=== PATIENT | female | born 1990 | race Caucasian/White ===

== ENCOUNTER 2019-07-03 13:30 | Outpatient (RCR) | payer OTHER, MEDICARE, MEDICAID, SELFPAY ==
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
--- NOTE | 2019-05-15 09:08 | PCPTNOTE ---
Patient called & cancelled scheduled appointment this date due to weather.
--- NOTE | 2019-05-22 12:51 | PCPTNOTE ---
Addendum entered by Giselle Viveros, PT 05/22/19 13:03: Note written in error. Pt arrived for scheduled appt. Original Note: Patient did not show up for scheduled appointment this date. She has an appt scheduled for 05/26.
--- NOTE | 2019-06-02 14:18 | PCPTNOTE ---
Patient called & cancelled scheduled appointment this date due to reason unknown.
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
--- NOTE | 2019-07-06 13:31 | PCPTNOTE ---
This treatment is being continued on visit number [id number]. Please see documentation on both accounts to view progress. Completed interventions, outcomes, and problems have been marked as Inactive to facilitate the copying of the Care plan routine for recurring accounts.
== END 2019-07-03 23:59 | disposition home or self-care (01) ==
LOC: ANHPT 13:30
DX: T79.2XXD Traumatic secondary and recurrent hemorrhage and seroma, subsequent encounter (principal); R53.81 Other malaise; V89.2XXD Person injured in unspecified motor-vehicle accident, traffic, subsequent encounter
CPT/HCPCS: 97110; 97112; 97116; 97140; 97162; 97530

== ENCOUNTER 2019-07-17 14:00 | Outpatient (RCR) | payer OTHER, MEDICARE, MEDICAID, SELFPAY ==
--- NOTE | 2019-07-06 13:32 | PCPTNOTE ---
The treatment documented on this account is a continuation of the treatment documented on visit number [id number]. Please see documentation on both accounts to view progress. The Plan of Care has been transitioned and updated within the new V#. I have addressed and agree with the discipline specific Problems, Interventions, and Goals for the current certification period. Completed interventions, outcomes, and problems have been marked as Inactive to facilitate the copying of the Care plan routine for recurring accounts.
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
== END 2019-07-18 09:43 | disposition home or self-care (01) ==
LOC: ANHPT 14:00
DX: T79.2XXD Traumatic secondary and recurrent hemorrhage and seroma, subsequent encounter (principal); R53.81 Other malaise; V89.2XXD Person injured in unspecified motor-vehicle accident, traffic, subsequent encounter
CPT/HCPCS: 97110; 97530

== ENCOUNTER 2020-08-13 16:38 | Outpatient (CLI) | payer MEDICARE, MEDICAID, SELFPAY ==
[2020-08-13 18:12] LABS: HIV 1/2 Ab P24 Ag Result Negative (Negative)
[2020-08-13 19:04] LABS: Hepatitis C Virus Antibody Negative (Negative)
[2020-08-14 11:30] LABS: Rapid Plasma Reagin Non-Reactive (NonReactive)
[2020-08-17 13:04] LABS: HSV 1 IgM Screen Negative (Negative); HSV 2 IgM Screen Negative (Negative)
== END 2020-08-13 16:39 | disposition home or self-care (01) ==
LOC: ANHLAB 16:40
PROVIDERS: Visit Provider Obstetrics & Gynecology
DX: Z20.2 Contact with and (suspected) exposure to infections with a predominantly sexual mode of transmission (principal); Z11.4 Encounter for screening for human immunodeficiency virus [HIV]
CPT/HCPCS: 36415; 86592; 86695; 86696; 86703; 86803; G0432

== ENCOUNTER 2021-09-18 14:18 | Outpatient (CLI) | payer MEDICARE, MEDICAID, SELFPAY ==
[2021-09-18 16:11] LABS: HIV 1/2 Ab P24 Ag Result Negative (Negative)
[2021-09-18 17:03] LABS: Hepatitis C Virus Antibody Negative (Negative)
[2021-09-19 07:20] LABS: Rapid Plasma Reagin Non-Reactive (NonReactive)
== END 2021-09-18 14:19 | disposition home or self-care (01) ==
PROVIDERS: Visit Provider Obstetrics & Gynecology
DX: Z20.2 Contact with and (suspected) exposure to infections with a predominantly sexual mode of transmission (principal); Z11.4 Encounter for screening for human immunodeficiency virus [HIV]
CPT/HCPCS: 36415; 86592; 86703; 86803; G0432

== ENCOUNTER 2021-10-28 14:51 | Outpatient (CLI) | payer MEDICARE, MEDICAID, SELFPAY ==
--- NOTE | ~2021-10-28 | US_ITS ---
EXAMINATION: US axilla LT, US axilla RT DATE: 10/28/2021 16:30 INDICATION: Localized swelling, mass and lump at the bilateral axillae TECHNIQUE: Multiple grayscale and Doppler ultrasound images of the left and right axilla were obtaine dEmily COMPARISON: None FINDINGS: There are couple superficial hypoechoic lesions at the left axilla which position within 1 mm of the skin surface. The larger measures 7 x 6 x 3 mm and the smaller measures 3 x 2 x 3 mm. There are 2 sim ilar-appearing hypoechoic lesions at the right axilla also 1 mm from the skin surface, the larger rigoberto suring 6 x 5 x 2 mm and the smaller 6 x 4 x 2 mm . 3 of these lesions demonstrate subtle hypoechoic t ract extending to the skin surface which be most consistent with sebaceous cysts. IMPRESSION: 1. Four subcentimeter very superficial subcutaneous lesions at the axilla, 2 on the left and 2 on the right. Three of these demonstrate hypoechoic tract extending to the skin surface which would be most consistent with sebaceous cysts. Reviewed, dictated and finalized at location B. IMPRESSION: 1. Four subcentimeter very superficial subcutaneous lesions at the axilla, 2 on the left and 2 on the right. Three of these demonstrate hypoechoic tract exten ding to the skin surface which would be most consistent with sebaceous cysts.
== END 2021-10-28 14:52 | disposition home or self-care (01) ==
LOC: ANHIMG 14:52
PROVIDERS: PCP Family Medicine; Visit Provider Obstetrics & Gynecology
DX: R22.31 Localized swelling, mass and lump, right upper limb (principal); R22.32 Localized swelling, mass and lump, left upper limb
CPT/HCPCS: 76882

== ENCOUNTER 2022-10-08 15:19 | Outpatient (CLI) | payer MEDICARE, MEDICAID, SELFPAY ==
[2022-10-08 17:24] LABS: HIV 1/2 Ab P24 Ag Result Negative (Negative)
[2022-10-08 17:35] LABS: Hepatitis C Virus Antibody Negative (Negative)
[2022-10-09 11:22] LABS: Rapid Plasma Reagin Non-Reactive (NonReactive)
== END 2022-10-08 15:20 | disposition home or self-care (01) ==
PROVIDERS: PCP Family Medicine; Visit Provider Obstetrics & Gynecology
DX: Z20.2 Contact with and (suspected) exposure to infections with a predominantly sexual mode of transmission (principal); Z11.3 Encounter for screening for infections with a predominantly sexual mode of transmission
CPT/HCPCS: 36415; 86592; 86703; 86803; G0432

== ENCOUNTER 2023-10-14 15:31 | Outpatient (CLI) | payer MEDICARE, MEDICAID, SELFPAY ==
[2023-10-14 17:12] LABS: Rapid Plasma Reagin Non-Reactive (NonReactive)
[2023-10-14 18:26] LABS: HIV 1/2 Ab P24 Ag Result Negative (Negative)
[2023-10-16 05:08] LABS: Hepatitis Be Antibody NON-REACTIVE (NON-REACTIVE)
== END 2023-10-14 15:32 | disposition home or self-care (01) ==
PROVIDERS: PCP Family Medicine; Visit Provider Nurse Practitioner Obstetrics & Gynecology
DX: Z11.3 Encounter for screening for infections with a predominantly sexual mode of transmission (principal); Z11.4 Encounter for screening for human immunodeficiency virus [HIV]
CPT/HCPCS: 36415; 86592; 86703; 86707; G0432

== ENCOUNTER 2024-11-23 12:24 | Outpatient (CLI) | payer MEDICARE, MEDICAID, SELFPAY ==
[2024-11-23 14:03] LABS: Hepatitis B Surface Antigen Negative (Negative)
[2024-11-23 14:21] LABS: Hepatitis C Virus Antibody Negative (Negative)
[2024-11-23 16:50] LABS: Syphilis IgG/IgM Antibody Non-Reactive (Nonreactive)
== END 2024-11-23 12:25 | disposition home or self-care (01) ==
PROVIDERS: Visit Provider Obstetrics & Gynecology
DX: Z11.3 Encounter for screening for infections with a predominantly sexual mode of transmission (principal); Z72.89 Other problems related to lifestyle
CPT/HCPCS: 36415; 86593; 86803; 87340